=== PATIENT | female | born 1955 | race Caucasian/White ===

== ENCOUNTER → 2023-12-04 10:59 | Outpatient (REF) | payer MEDICARE, BC, SELFPAY | LOC: RAD 10:59 | PROVIDERS: ATTENDING PHYSICIAN Surgery Vascular Surgery | DX: I73.9 Peripheral vascular disease, unspecified (principal) | CPT/HCPCS: 93922; 93925 ==

== ENCOUNTER → 2024-05-26 14:09 | Outpatient (REF) | payer MEDICARE, BC, SELFPAY | LOC: DHVS 14:09 | PROVIDERS: ATTENDING PHYSICIAN Registered Nurse; FAMILY PHYSICIAN Internal Medicine | DX: I73.9 Peripheral vascular disease, unspecified (principal) | CPT/HCPCS: 93922; 93925 ==

== ENCOUNTER → 2024-07-13 10:44 | Outpatient (REF) | payer MEDICARE, BC, SELFPAY | LOC: RAD 10:44 | PROVIDERS: ATTENDING PHYSICIAN Specialist; FAMILY PHYSICIAN Internal Medicine | DX: H34.01 Transient retinal artery occlusion, right eye (principal) | CPT/HCPCS: 93880 ==

== ENCOUNTER → 2024-12-07 13:56 | Outpatient (REF) | payer MEDICARE, BC, SELFPAY | LOC: HWRCS 13:56 | PROVIDERS: ATTENDING PHYSICIAN Internal Medicine Cardiovascular Disease; FAMILY PHYSICIAN Internal Medicine | DX: Z95.2 Presence of prosthetic heart valve (principal) | CPT/HCPCS: 93306 ==

== ENCOUNTER → 2024-12-29 14:37 | Outpatient (REF) | payer MEDICARE, BC, SELFPAY | LOC: DHVS 14:37 | PROVIDERS: ATTENDING PHYSICIAN Surgery Vascular Surgery; FAMILY PHYSICIAN Internal Medicine | DX: I73.9 Peripheral vascular disease, unspecified (principal) | CPT/HCPCS: 93922; 93925 ==

== ENCOUNTER → 2025-05-25 14:17 | Outpatient (REF) | payer MEDICARE, BC, SELFPAY | LOC: RAD 14:17 | PROVIDERS: ATTENDING PHYSICIAN Surgery Vascular Surgery; FAMILY PHYSICIAN Internal Medicine | DX: I73.9 Peripheral vascular disease, unspecified (principal) | CPT/HCPCS: 93922; 93926 ==

== ENCOUNTER → 2025-06-07 14:10 | Outpatient (REF) | payer MEDICARE, BC, SELFPAY ==
[2025-06-07 15:42] LABS: INR 2.63; PT 28.1 Sec (11.4-14.6)
== END ==
LOC: REG 14:10
PROVIDERS: ATTENDING PHYSICIAN Internal Medicine Cardiovascular Disease; FAMILY PHYSICIAN Internal Medicine
DX: Z95.2 Presence of prosthetic heart valve (principal)
CPT/HCPCS: 36415; 85610